=== PATIENT | female | born 1945 | race Caucasian/White ===

== ENCOUNTER 2016-04-01 16:09 | Emergency (ER) | payer OTHER, MEDICARE ==
[~2016-04-01] VITALS: Ht 165.1 cm; Wt 72.6 kg
--- NOTE | 2016-04-01 17:49 | ED AMS/SEIZURE/WEAK/DIZZY ---
History of Present Illness General Chief Complaint: Dizziness Stated Complaint: FALL +DIZZINESS Source: patient Exam Limitations: no limitations Vital Signs & Intake/Output Vital Signs & Intake/Output Vital Signs Date Time Temp Pulse Resp B/P Pulse O2 O2 Flow FiO2 Ox Delivery Rate 04/01 2311 97.6 73 18 139/72 98 Room Air 04/01 1905 66 182/98 04/01 1821 99.9 73 18 196/91 95 Room Air 04/01 1730 98 Room Air 04/01 1643 99.9 96 20 154/85 99 Room Air ED Intake and Output 04/02 0000 04/01 1200 Intake Total Output Total Balance Patient 160 lb Weight Allergies Coded Allergies: No Known Allergies (04/01/16) Reconcile Medications Escitalopram Oxalate 10 MG TABLET 1 TAB PO DAILY DEPRESSION (Reported) Fluticasone/Salmeterol (Advair 500-50 Diskus) 500 MCG-50 MCG/DOSE BLST.W.DEV 1 PUF INH BID ASTHMA (Reported) Gabapentin (Neurontin) 300 MG CAPSULE 1 CAP PO TID PAIN (Reported) Levothyroxine Sodium 25 MCG TABLET 1 TAB PO DAILY THYROID (Reported) Liothyronine Sodium 5 MCG TABLET 1 TAB PO DAILY THYROID (Reported) Losartan Potassium 100 MG TABLET 1 TAB PO DAILY HIGH BLOOD PRESSURE (Reported ) Mesalamine (Pentasa) 500 MG CAPSULE.ER 55 MG PO DAILY CROHNS (Reported) Montelukast Sodium 10 MG TABLET 1 TAB PO DAILY ALLERGIES (Reported) Oseltamivir Phosphate (Tamiflu) 30 MG CAPSULE 1 CAP PO D FLU PROPHYLAXIS ( Reported) Triage Note: PT TO ED C/O DIZZINESS AT 1530 TODAY. PT STATES SHE WAS SPEAKING WITH SOMEONE, FELT OFF, STARTED TO WALK AWAY AND FELL TO HER KNEES. DENIES ANY HEADSTRIKE. REMEMBERS ALL EVENTS. STATES SHE IS ON TAMIFLU FOR PROPHYLAXIS BECAUSE HER JUST HAD THE FLU. PT IS A/0X3, DENIES ANY PAIN, C/P, DIFF BREATHING. STATES SHE FEELS DEHYDRATED. FINGERSTICK 92. VSS. CHANGED INTO GOWN, PLACED ON MONITOR. AWAITING PROVIDER EVAL. ONLY COMPLAINT AT THIS TIME IS SLIGHT LIGHTHEADEDNESS. Triage Nurses Notes Reviewed? yes HPI: Patient presents for evaluation of a near syncopal episode that occurred while at home just prior to arrival. Patient states she was talking to a contractor when she began feeling funny. She went to sit down on the couch but her knees buckled before she got there. She denies loss of consciousness, diaphoresis, chest pain, heart palpitations, headache or spinning sensation. She states that her vision got a bit hazy during the episode. Although she's never had an episode similar to this she has fainted at one point in the past. She is currently taking Tamiflu for the possibility of influenza. She states the episode lasted a few seconds and she feels essentially back to her normal self other than for mild dizziness currently. (YURIY HOFFMAN,SALVADOR Dash) Past History Travel History Traveled to [place] past 21 day No Medical History Any Pertinent Medical History? see below for history Cardiovascular: hypertension Respiratory: asthma Gastrointestinal: Crohn's disease Endocrine: Zach's thyroiditis History of MRSA: Yes History of VRE: No History of CDIFF: No Pneumonia Vaccine: 08/11/12 Surgical History Surgical History: non-contributory Psychosocial History Who do you live with Spouse What is your primary language Nigerien Tobacco Use: Never used ETOH Use: denies use Illicit Drug Use: denies illicit drug use Family History Hx Contributory? No (YURIY HOFFMAN,SALVADOR Dash) Review of Systems Review of Systems Constitutional: Reports: no symptoms. EENTM: Reports: no symptoms. Respiratory: Reports: no symptoms. Cardiovascular: Reports: no symptoms. GI: Reports: no symptoms. Genitourinary: Reports: no symptoms. Musculoskeletal: Reports: no symptoms. Skin: Reports: no symptoms. Neurological/Psychological: Reports: no symptoms. Hematologic/Endocrine: Reports: no symptoms. Immunologic/Allergic: Reports: no symptoms. All Other Systems: Reviewed and Negative (SALVADOR CABELLO MD) Physical Exam Physical Exam General Appearance: SEE BELOW Comments: Gen.: Well-nourished, well-developed, no acute respiratory distress. Head: Normocephalic, atraumatic. Face: No droop Eyes: Normal inspection bilaterally, PERRLA, EOMI Ears: Normal inspection bilaterally Nose: Normal inspection Throat/mouth : Moist mucosa Neck: Supple, full range of motion, no goiter, no carotid bruits, equal carotid pulses, no goiter Heart: Regular rate and rhythm, no murmurs rubs or gallops Lungs: Clear to auscultation bilaterally with normal air entry Chest: Nontender Back: Normal range of motion Abdomen: Soft, nontender, nondistended, normal bowel sounds Extremities: Normal range of motion grossly, equal radial pulses, no cyanosis clubbing or edema, no signs of trauma Neurologic: Cranial nerves 2 through 12 intact, speech is clear Skin: warm and dry Psychiatric: Calm, cooperative, no apparent delusions or hallucinations (YURIY HOFFMAN,SALVADOR Dash) Core Measures ACS in differential dx? Yes CVA/TIA Diagnosis: No Severe Sepsis Present: No Septic Shock Present: No (SALVADOR BAÑUELOS DO) Progress Differential Diagnosis: cva, NEAR SYNCOPE, DYSRHYTHMIA, DEHYDRATION, ELECTROLYTE ABNORMALITY, ANEMIA, VASODEPRESSIVE NEAR SYNCOPE Plan of Care: Orders Procedure Date/time Status TROPONIN LEVEL 04/01 2210 Complete EKG 04/01 2115 Active Telemetry/Reel Blade Bender Furnace Tender 04/01 1954 Active MISTAKE 04/01 174 Active URINALYSIS 04/01 174 Complete THYROID STIMULATING HORMONE 04/01 174 Complete TROPONIN LEVEL 04/01 174 Complete CBC WITHOUT DIFFERENTIAL 04/01 174 Complete BASIC METABOLIC PANEL 04/01 1747 Complete EKG 04/01 1626 Active Laboratory Tests 04/01/16 2230: Troponin I < 0.01 04/01/16 1800: Anion Gap 9, Estimated GFR 55 L, BUN/Creatinine Ratio 32.0 H, Glucose 85, Calcium 9.2, Troponin I < 0.01, TSH 2.430, CBC w Diff NO MAN DIFF REQ, RBC 4.65, MCV 87.7, MCH 29.8, RDW 13.1, MPV 8.1, Gran % 78.8 H, Lymphocytes % 10.7 L, Monocytes % 7.0, Eosinophils % 3.1, Basophils % 0.4, Absolute Granulocytes 4.8, Absolute Lymphocytes 0.7 L, Absolute Monocytes 0.4, Absolute Eosinophils 0.2, Absolute Basophils 0, PUBS MCHC 34.0, Urine Color YEL, Urine Clarity CLEAR, Urine pH 6.0, Ur Specific Ames 1.025, Urine Protein NEG, Urine Ketones NEG, Urine Nitrite NEG, Urine Bilirubin NEG, Urine Urobilinogen 0.2, Ur Leukocyte Esterase NEG, Ur Microscopic EXAM NOT REQUIRED, Urine Hemoglobin NEG, Urine Glucose NEG Initial ED EKG: NSR, rate (91), 1 PVC Prior EKG: unchanged Rhythm Strip: normal sinus rhythm Comments: 04/01/2016 7:08:17 PM patient signed out to Dr. Bañuelos at shift change coordinator. (YURIY HOFFMAN,SALVADOR Dash) Departure Departure Condition: Stable Referrals: ERYN HOFFMAN,MANA Cesar (PCP/Family) Departure Forms: Customer Survey General Discharge Information (YURIY HOFFMAN,SALVADOR Dash) Departure Disposition: STILL A PATIENT Clinical Impression Primary Impression: Dizziness Secondary Impressions: Dehydration, Weakness Comments 04/01/16 7:31 PM 70-year-old female was signed out to me by Dr. Cabello. She was in her usual state of health until earlier today when she developed an episode of dizziness and weakness. She actually fell to her knees but never passed out. She denies chest pain headache abdominal pain fever or other complaints. She does have a past medical history of migraine headaches, she also has a history of Crohn's disease, she status post partial lung resection, status post bowel resection. She denies any drug allergies. Her medications were reviewed. She was recently started on Tamiflu as her was diagnosed with the flu. Her vital signs are stable. She is afebrile. Physical exam is completely unremarkable other than very minimal horizontal nystagmus that fatigues. Neurological exam is normal. Labs are unremarkable. EKG showed no acute changes, she did have 1 PVC. She did have mild azotemia. IV fluids were given. A CT scan of the head was ordered. CT scan of the head was negative Serial troponins were done. The patient was signed out to Dr. Fitch at 11 PM. Assuming the second troponin is negative, she will follow-up with her doctor on Monday. (SALVADOR BAÑUELOS DO) Departure Comments At discharge, she is feeling well. She would like to go home. Trop neg x 2, ekg benign. Close follow up encouraged. (KISHA HOFFMAN,RAQUEL Miranda)
[2016-04-01 18:14] LABS: ABSOLUTE BASOPHIL COUNT 0 /CUMM (0.0-0.2); ABSOLUTE EOSINOPHIL COUNT 0.2 /CUMM (0.0-0.7); ABSOLUTE GRANULOCYTE CT 4.8 /CUMM (1.4-6.5); ABSOLUTE LYMPH COUNT 0.7 /CUMM (1.2-3.4); ABSOLUTE MONOCYTE COUNT 0.4 /CUMM (0.10-0.60); BASOPHIL % 0.4 % (0.0-2.0); EOSINOPHIL % 3.1 % (0-5); GRANULOCYTE % 78.8 % (42.2-75.2); HEMATOCRIT 40.8 % (37-47); MEAN CORPUSCULAR HGB 29.8 PG (27.0-31.0); MEAN CORPUSCULAR VOLUME 87.7 FL (81.0-99.0); MEAN PLATELET VOLUME 8.1 FL (7.4-10.4); PLATELET COUNT 257 /CUMM (130-400); RBC DISTRIBUTION WIDTH 13.1 % (11.5-14.5); RED BLOOD CELL CT 4.65 /CUMM (4.20-5.40); WHITE BLOOD CELL COUNT 6.1 /CUMM (4.8-10.8)
[2016-04-01] MEDS ORDERED: LEVOTHYROXINE25 MCG PO (18:49)
[2016-04-01] MEDS ORDERED: LIOTHYRONINE SO5 MC1 PO (18:49)
[2016-04-01] MEDS ORDERED: MONTELUKAST SOD10 M1 PO (18:50)
[2016-04-01] MEDS ORDERED: LOSARTAN POTAS100 M1 PO (18:50)
[2016-04-01] MEDS ORDERED: PENTASA500 M1 PO (18:50)
[2016-04-01] MEDS ORDERED: ESCITALOPRAM OX10 MG PO (18:50)
[2016-04-01] MEDS ORDERED: TAMIFLU30 M1 PO (18:51)
[2016-04-01] MEDS ORDERED: ADVAIR 500-501 EACH INH (18:51)
[2016-04-01] MEDS ORDERED: NEURONTIN300 M1 PO (18:52)
--- NOTE | 2016-04-01 20:33 | CT SCAN REPORT ---
EXAMINATION: CT HEAD WITHOUT CONTRAST CLINICAL INFORMATION: Altered mental status COMPARISON: Head CT from 12/11/2013 TECHNIQUE: Contiguous axial imaging was performed from the skull base to vertex without intravenous administration of contrast. DLP: 601 mGy-cm. FINDINGS: There is no evidence of acute intracranial hemorrhage or territorial infarction. No abnormal mass effect or midline shift is seen. Barnett to white matter differentiation is well preserved. No extra-axial fluid collections are identified. The ventricles are normal in size. There is no abnormal attenuation within the brain parenchyma. The osseous structures and soft tissues are normal. The mastoid air cells and visualized portions of the paranasal sinuses are well aerated. IMPRESSION: No acute intracranial pathology.
[2016-04-01 23:11] VITALS: BP 139/72
== END 2016-04-02 00:10 ==
LOC: ERH 16:09
PROVIDERS: Emergency Medicine
DX: R42 Dizziness and giddiness (principal); E86.0 Dehydration; R53.1 Weakness
CPT/HCPCS: 81003; 93005; 93010

== ENCOUNTER → 2017-03-24 | Day surgery (SDC) | payer OTHER ==
[~2017-03-24] VITALS: Ht 165.1 cm; Wt 72.6 kg
[~2017-03-24] MED LIST: ADVAIR 500-501 EACH INH; CALCIUM 600 +1 EAC9 PO; CO Q-10200 MG PO; ESCITALOPRAM OX10 MG PO; FEMARA2.5 M1 PO; KEFLEX500 M1 PO; LEVOTHYROXINE25 MCG PO; LIOTHYRONINE SO5 MC1 PO; LOSARTAN POTAS100 M1 PO; MAGNESIUM PO; MAGNESIUM250 M2 PO; MONTELUKAST SOD10 M1 PO; NASONEX17 GM NASB; NEURONTIN300 M1 PO; PATANASE30.5 GM NASB; PENTASA PO; PENTASA500 M1 PO; PREDNISONE10 M2 PO; PREVACID 24HR15 MG PO; PROAIR HFA8.5 GM INH; ROXICODONE5 M1 PO; TAMIFLU30 M1 PO; VALIUM10 M1 PO; VITAMIN A10000 UNIT PO; VITAMIN C500 M8 PO; VITAMIN D5000 UNIT PO; ZANTAC150 M1 PO; ZOFRAN4 M2 PO
[2017-03-24 07:42] LABS: ABSOLUTE BASOPHIL COUNT 0 /CUMM (0.0-0.2); ABSOLUTE EOSINOPHIL COUNT 0.2 /CUMM (0.0-0.7); ABSOLUTE GRANULOCYTE CT 3.4 /CUMM (1.4-6.5); ABSOLUTE LYMPH COUNT 0.8 /CUMM (1.2-3.4); ABSOLUTE MONOCYTE COUNT 0.5 /CUMM (0.10-0.60); BASOPHIL % 0.4 % (0.0-2.0); EOSINOPHIL % 4.9 % (0-5); GRANULOCYTE % 68.5 % (42.2-75.2); HEMATOCRIT 40.2 % (37-47); MEAN CORPUSCULAR HGB 29.7 PG (27.0-31.0); MEAN CORPUSCULAR HGB CONC 33.8 G/DL (33.0-37.0); MEAN PLATELET VOLUME 7.9 FL (7.4-10.4); PLATELET COUNT 282 /CUMM (130-400); RBC DISTRIBUTION WIDTH 13.7 % (11.5-14.5); RED BLOOD CELL CT 4.56 /CUMM (4.20-5.40)
--- NOTE | 2017-03-24 14:16 | Operative Report ---
Operative/Inv Procedure Report Surgery Date: 03/24/17 Name of Procedure: 1. Removal left breast tissue residential property manager and placement left breast silicone subpectoral implant 2. 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 Patient has a history of prior lumpectomy and left breast radiation. She is status post first stage reconstruction with tissue residential property manager, AlloDerm, and dermatocutaneous flap. Risks discussion preoperatively included but was not limited to the risk of infection bleeding poor scar formation contour irregularity potential for infection or exposure of the final implant the potential for calcification or fibrosis or oil cysts formation from the fat grafts and the possible need for additional surgery in the future. Patient was allowed us questions or questions were answered she gave consent for surgery. Operative/Procedure Note Note: With the patient on the OR table in the supine position under adequate general anesthesia, the patient was prepped with chlorhexidine. Rest abdomen and hips, and then the breasts were secondarily prepped with Betadine and she was draped in sterile fashion. Two 3 mm incisions were made on the lower abdomen, and tumescent solution was infused into the abdominal subcutaneous space. Tumescent solution consisted of 1000 mL normal saline, mixed with 50 mL of 1% Xylocaine plain, and 1 mL of epinephrine, 1:1000. A total of 400 mL of tumescent solution was infused. Using the micro-air liposuction system, with suction set at between 18 and 22 inches mercury, and power set at 65%, fat graft was harvested with a 4 mm tri-port cannula. Fat was collected in a sterile collection canister. After 12 minutes, the aqueous layer was drained away, and the fat was transferred into sterile 5 mL syringes. The 2 lower abdominal incisions were closed with deep inverted 4-0 Vicryl subdermal sutures and interrupted 5-0 nylon sutures. 2 x 2 gauze and sterile Band-Aids were applied. A 5 cm inframammary central breast incision was then made with 15 scalpel blade and carried down through the dermal layer. Bovie cautery was used to dissect down through subcutaneous tissue through capsule and the tissue residential property manager was then sterilely deflated with a #18-gauge needle and suction. The tissue residential property manager was removed. A posterior partial capsulectomy was performed, as well as a partial anterior capsulectomy. A portion of the anterior capsule was removed was AlloDerm was not adherent. The pocket was then irrigated with a dilute mixture Betadine and saline followed by triple antibiotic irrigation. Triple antibiotic irrigation consisted of Ancef gentamicin and bacitracin. A 355 mL sterile sizer was introduced into the pocket with a Feldman funnel using a no touch technique. Skin was approximated with skin clips and she was placed in an upright seated position. This was felt to be her best size and implant shape option. She is placed back in the supine position the sizer was removed and micro-fat grafting was then performed. Utilizing the inframammary incision, and a 14-gauge flat-tipped micro-fat graft cannula, fat grafting was performed to the medial superior and superolateral portion of the breasts. Total of 50 mL of fat was grafted. A Climax 355 mL MM silicone textured implant was prepared for implantation by soaking it in triple antibiotic solution. The implant was then introduced into the left breast pocket with a Feldman funnel, utilizing a no touch technique. Skin clips were again used to approximate the incision patient was placed in an upright seated position implant position was good. Patient was placed back in the supine position skin clips were removed and the incision was closed with a running 3-0 absorbable V lock suture, a running 4-0 absorbable V lock suture, and a running 4-0 Monocryl suture. Xeroform gauze was applied. Sterile light dressing was applied consisting of 4 x 4 gauzes Kerlix fluff gauze , 5 x 9 pads, postsurgical bra, and a 4 inch Андрей wrap. A lower body compression garment was applied as well. Patient tolerated the procedure well. No complications Discharge Disposition: PACU
== END ==
LOC: STS 02:01
PROVIDERS: Specialist
DX: Z85.3 Personal history of malignant neoplasm of breast (principal); Z90.12 Acquired absence of left breast and nipple; I10 Essential (primary) hypertension; E03.9 Hypothyroidism, unspecified; J45.909 Unspecified asthma, uncomplicated
CPT/HCPCS: 36415; 93005; 93010; J0131; J0171; J0690; J1100; J1580; J2250; J2405; J2765; J3250; J3490